=== PATIENT | female | born 1965 | race African-American/Black ===

== ENCOUNTER 2022-08-22 02:35 | Inpatient (IN) | payer OTHER ==
[~2022-08-22] VITALS: Ht 162.6 cm; Wt 107.5 kg
[2022-08-22] MEDS ORDERED: KETOROLAC 30MG/ML VIAL IV STA (03:23)
[2022-08-22] MEDS ORDERED: SODIUM CHLORIDE 0.9% 1,000 ML IV ONE ×2 (03:30→11:00)
[2022-08-22 04:17] LABS: CLARITY URINE CLEAR (CLEAR); COLOR URINE YELLOW (YELLOW); KETONES URINE 2+ (NEGATIVE); LEUKOCYTE ESTERASE URINE NEGATIVE (NEGATIVE); NITRITE URINE NEGATIVE (NEGATIVE); OCCULT BLOOD URINE NEGATIVE (NEGATIVE); PH URINE 5.5 (4.5-8.0); PROTEIN URINE TRACE (NEGATIVE); SPECIFIC GRAVITY URINE 1.019 (1.005-1.030)
[2022-08-22 04:37] LABS: CHLORIDE 101 mEq/L (98-107); HEMATOCRIT. 40.4 % (36.0-48.0); HEMOGLOBIN. 13.3 g/dL (12.0-16.0); MEAN CORPUSCULAR HEMOGLOBIN 29.4 pg (28.0-32.0); MEAN CORPUSCULAR VOLUME 89.5 fL (81.0-99.0); MEAN PLATELET VOLUME 9.5 fl (7.4-10.4); PLATELET 191 x1000/uL (130-400); RED BLOOD CELL COUNT 4.51 mill/uL (4.2-5.4)
[2022-08-22 05:26] LABS: PLATELET ESTIMATE NORMAL
[2022-08-22] MEDS ORDERED: MORPHINE SULFATE 4 MG/ML CPJ (NOT FOR IM USE) IV ONE (08:15)
[2022-08-22] MEDS ORDERED: ACETAMINOPHEN 325MG TABLET PO ONE (08:45)
[2022-08-22] MEDS ORDERED: CLONIDINE 0.1MG TABLET PO PRN (12:15)
[2022-08-22] MEDS ORDERED: TRAMADOL 50MG TABLET PO PRN (12:15)
[2022-08-22] MEDS ORDERED: GUAIFENESIN 200MG/10ML SUGAR FREE UDC PO PRN (12:15)
[2022-08-22] MEDS ORDERED: MAGNESIUM/ALUMINUM HYDROXIDE/SIMETHICONE 30ML UDC PO PRN (12:15)
[2022-08-22] MEDS ORDERED: ONDANSETRON HCL 4MG/2ML INJ IV PRN (12:15)
[2022-08-22] MEDS ORDERED: NALOXONE HCL 0.4MG/ML VIAL IV PRN (12:30)
[2022-08-22] MEDS ORDERED: DEXT 5%/0.45% NACL KCL 10MEQ/L 1,000 ML IV SCH (12:30)
[2022-08-22] MEDS: PANTOPRAZOLE SODIUM 40 MG/VIAL IV SCH (12:40)
[2022-08-22] MEDS: ENOXAPARIN 40MG/0.4ML SYR SUBCUT SCH (12:42)
[2022-08-22] MEDS ORDERED: ACETAMINOPHEN 325MG TABLET PO SCH (15:00)
[2022-08-22 15:31] LABS: HEPATITIS B SURFACE ANTIGEN NEGATIVE
[2022-08-22 16:20] VITALS: BP 142/83
[2022-08-22] MEDS: POLYETHYLENE GLYCOL 3350 (17GM) 1 DOSE PACK PO SCH (18:01)
[2022-08-22] MEDS: KETOROLAC 15MG/ML VIAL IV PRN (18:36)
[2022-08-22 18:43] VITALS: BP 142/83
[2022-08-22] MEDS ORDERED: PROT40 PO (19:02)
[2022-08-22] MEDS ORDERED: AMLO2.5T2 PO (19:02)
[2022-08-22 20:00] VITALS: BP 151/90
[2022-08-23] VITALS: BP 123/77
[2022-08-23 04:00] VITALS: BP 121/83
[2022-08-23 06:17] LABS: HEMATOCRIT. 40.5 % (36.0-48.0); HEMOGLOBIN. 13.4 g/dL (12.0-16.0); MEAN CORPUSCULAR HEMOGLOBIN 29.6 pg (28.0-32.0); MEAN CORPUSCULAR VOLUME 89.3 fL (81.0-99.0); MEAN PLATELET VOLUME 9.1 fl (7.4-10.4); PLATELET 188 x1000/uL (130-400); RED BLOOD CELL COUNT 4.54 mill/uL (4.2-5.4)
[2022-08-23 06:44] LABS: CHLORIDE 101 mEq/L (98-107)
[2022-08-23 08:00] VITALS: BP 127/70
[2022-08-23 08:12] LABS: PLATELET ESTIMATE NORMAL
[2022-08-23] MEDS: POLYETHYLENE GLYCOL 3350 (17GM) 1 DOSE PACK PO SCH (08:30)
[2022-08-23] MEDS: PANTOPRAZOLE SODIUM 40 MG/VIAL IV SCH (08:30)
[2022-08-23] MEDS: KETOROLAC 15MG/ML VIAL IV PRN (08:39)
[2022-08-23] MEDS ORDERED: POTASSIUM CHLORIDE 20MEQ TABLET SR PO SCH (10:45)
[2022-08-23 12:00] VITALS: BP 118/66
[2022-08-23] MEDS ORDERED: MAGNESIUM OXIDE 400MG TABLET PO NR (13:45)
[2022-08-23] MEDS ORDERED: MAGNESIUM 2 G PREMIX 50 ML IV SCH (14:00)
[2022-08-23] MEDS: ENOXAPARIN 40MG/0.4ML SYR SUBCUT SCH (14:06)
[2022-08-23 15:48] VITALS: BP 118/66
[2022-08-23 16:09] VITALS: BP 120/69
[2022-08-24] MEDS ORDERED: ENOXAPARIN 30MG/0.3ML SYR SUBCUT SCH (09:00)
== END 2022-08-23 16:50 | disposition home or self-care (01) | DRG 872 ==
LOC: ER 02:35 → 6WST 10:56 → ENRESERV 14:47
PROVIDERS: ADMIT Hospitalist; ATTEND Hospitalist
DX: A41.9 Sepsis, unspecified organism (principal); Z68.41 Body mass index [BMI] 40.0-44.9, adult; E87.6 Hypokalemia; E66.9 Obesity, unspecified; E83.42 Hypomagnesemia; K57.30 Diverticulosis of large intestine without perforation or abscess without bleeding; I10 Essential (primary) hypertension; Z20.822 Contact with and (suspected) exposure to COVID-19; R10.84 Generalized abdominal pain; K59.09 Other constipation; K70.9 Alcoholic liver disease, unspecified; K76.0 Fatty (change of) liver, not elsewhere classified; Z80.3 Family history of malignant neoplasm of breast; Z80.7 Family history of other malignant neoplasms of lymphoid, hematopoietic and related tissues; Z90.710 Acquired absence of both cervix and uterus; Z98.84 Bariatric surgery status; Z88.2 Allergy status to sulfonamides
CPT/HCPCS: 36415; 71045; 74018; 74176; 76705; 80053; 80076; 80307; 80320; 80329; 81003; 82248; 82607; 83605; 83735; 83970; 84484; 85025; 86705; 86709; 86803; 87340; 87426; 93005; 99285; C9113; J1650; J1885; J2270; J3475; J7030; G0480